=== PATIENT | female | born 1945 | race African-American/Black ===

== ENCOUNTER 2017-06-10 00:24 | Observation (INO) | payer MEDICARE ==
--- NOTE | 2017-06-10 00:44 | ED Physician Documentation ---
PD HPI ABD PAIN - Stated complaint Stated Complaint: ABDOMINAL PAIN - Chief complaint Chief Complaint: Abd Pain - History obtained from History obtained from: Patient - History of Present Illness Timing - onset: Yesterday (yesterday morning (less than 24 hours)) Timing - details: Gradual onset, Waxing and waning Pain level now: 7 Quality: Pain Location: All over / everywhere Radiation: Other (no radiation) Improved by: Other (no ameliorating factors) Worsened by: Other (no exacerbating factors) Associated symptoms: Nausea, Vomiting. No: Fever, Diarrhea, Constipation Similar symptoms before: Has not had sx before Recently seen: Not recently seen Review of Systems Constitutional: reports: Reviewed and negative Eyes: reports: Reviewed and negative Ears: reports: Reviewed and negative Nose: reports: Reviewed and negative Throat: reports: Reviewed and negative Cardiac: reports: Reviewed and negative Respiratory: reports: Reviewed and negative GI: reports: Abdominal Pain, Nausea, Vomiting. denies: Abdominal Swelling, Constipation, Diarrhea, Bloody / black stool : denies: Dysuria, Frequency Skin: reports: Reviewed and negative Musculoskeletal: reports: Reviewed and negative Neurologic: reports: Reviewed and negative PD PAST MEDICAL HISTORY - Past Medical History Past Medical History: Yes Cardiovascular: Hypertension, High cholesterol GI: GERD, Ulcers Musculoskeletal: Chronic back pain - Past Surgical History Past Surgical History: Yes General: Cholecystectomy Ortho: Carpal Tunnel surgery, Spine surgery, Other /MACHINIST HELPER: Hysterectomy, Oophrectomy - Present Medications Home Medications: Ambulatory Orders Medication Instructions Recorded Confirmed Aspirin 81 mg PO DAILY 06/10/17 06/10/17 Hydralazine HCl 50 mg PO BID 06/10/17 06/10/17 Metoprolol Succinate 12.5 mg PO BID 06/10/17 06/10/17 Pravastatin [Pravachol] 40 mg PO DAILY 06/10/17 06/10/17 amLODIPine [Norvasc] 5 mg PO BID 06/10/17 06/10/17 - Allergies Allergies/Adverse Reactions: Allergies Allergy/AdvReac Type Severity Reaction Status Date / Time lisinopril AdvReac Edema Verified 06/10/17 05:43 - Social History Does the pt smoke?: Yes Smoking Status: Current every day smoker Does the pt drink ETOH?: No Does the pt have substance abuse?: No - Immunizations Immunizations are current?: No Immunizations: TDAP >10years/unknown - POLST Patient has POLST: No PD ED PE NORMAL - Vitals Vital signs reviewed: Yes - General General: Alert and oriented X 3, Well developed/nourished, Other (obvious painful distress; when I first enter room, she is standing at bedside, leaning forward and clutching her abdomen) - HEENT HEENT: Other (tacky/pasty mucous membranes) - Cardiac Cardiac: RRR, No murmur - Respiratory Respiratory: No respiratory distress, Clear bilaterally - Abdomen Abdomen: Soft, Non distended, Other (mild/moderate tenderness across lower abdomen without rebound or guarding, more pronounced in LLQ) - Back Back: No CVA TTP - Derm Derm: Normal color, Warm and dry - Extremities Extremities: No edema Results - Vitals Vitals: Vital Signs - 24 hr 06/10/17 06/10/17 06/10/17 00:31 01:20 01:52 Temperature 36.9 C Heart Rate 103 H 107 H Respiratory 17 19 16 Rate Blood Pressure 170/92 H 166/82 H O2 Saturation 96 98 06/10/17 06/10/17 02:06 02:39 Temperature Heart Rate 100 101 H Respiratory 17 16 Rate Blood Pressure 160/79 H 154/89 H O2 Saturation 98 99 Oxygen O2 Source Room air - Labs Labs: Laboratory Tests 06/10/17 06/10/17 06/10/17 01:10 01:10 02:39 WBC 14.9 H RBC 5.47 H Hgb 14.4 Hct 46.5 MCV 84.9 MCH 26.4 L MCHC 31.1 L RDW 15.4 H Plt Count 316 MPV 8.4 Neut # 12.9 H Lymph # 1.4 L Ponce # 0.5 Eos # 0.0 Baso # 0.0 Absolute Nucleated RBC 0.00 Nucleated RBC % 0.0 Sodium 138 Potassium 3.5 Chloride 101 Carbon Dioxide 26 Anion Gap 11.0 BUN 15 Creatinine 0.8 Estimated GFR (MDRD) 85 L Glucose 184 H Calcium 9.4 Total Bilirubin 0.4 AST 19 ALT 14 Alkaline Phosphatase 115 Total Protein 7.6 Albumin 4.2 Globulin 3.4 Albumin/Globulin Ratio 1.2 Lipase 19 L Urine Color YELLOW Urine Clarity CLEAR Urine pH 7.0 Ur Specific [place] <=1.005 Urine Protein NEGATIVE Urine Glucose (UA) NEGATIVE Urine Ketones TRACE Urine Occult Blood TRACE-INTA Urine Nitrite NEGATIVE Urine Bilirubin NEGATIVE Urine Urobilinogen 0.2 (NORMAL) Ur Leukocyte Esterase NEGATIVE Ur Microscopic Review NOT INDICATED Urine Culture Comments NOT INDICATED - Rads (name of study) CT A/P Radiology: Prelim report reviewed, See rad report PD MEDICAL DECISION MAKING - ED course Complexity details: reviewed results, re-evaluated patient, considered differential, d/w patient ED course: patient had modest and transient improvement in pain with 4mg IV morphine, but upon returning from CT, she says the pain has returned and feels about the same as when she first came in. She also continues to have nausea after IV fluids and zofran. CT suggests early/partial SBO. Given another dose of morphine and IV fluids continued and admitted for observation Departure - Departure Disposition: ED Place in Observation Clinical Impression: Partial small bowel obstruction Condition: Good Discharge Date/Time: 06/10/17 03:40
[2017-06-10] MEDS ORDERED: MORPHINE 2 MG/ML SYRINGE IVP STA ×2 (00:56→02:55)
[2017-06-10] MEDS ORDERED: SODIUM CHLORIDE 0.9% 500 ML IV STA (00:56)
[2017-06-10] MEDS ORDERED: ONDANSETRON 4 MG/2 ML VIAL IVP STA (01:32)
[2017-06-10 01:42] LABS: BASOPHILS % (AUTO) 0.2 %; HGB - HEMOGLOBIN 14.4 g/dL (12.0-16.0); LYMPHOCYTES # (AUTO) 1.4 10^3/uL (1.5-3.5); LYMPHOCYTES % (AUTO) 9.5 %; MEAN CORPUSCULAR HEMOGLOBIN 26.4 pg (27.0-31.0); MEAN CORPUSCULAR HGB CONC 31.1 g/dL (32.0-36.0); MEAN CORPUSCULAR VOLUME 84.9 fL (81.0-99.0); MEAN PLATELET VOLUME 8.4 fL (7.9-10.8); MONOCYTES # (AUTO) 0.5 10^3/uL (0.0-1.0); MONOCYTES % (AUTO) 3.4 %; NEUTROPHILS # (AUTO) 12.9 10^3/uL (1.5-6.6); NEUTROPHILS % (AUTO) 86.9 %; PLT - PLATELET COUNT 316 10^3/uL (130-450); RED BLOOD COUNT 5.47 10^6/uL (4.20-5.40); RED CELL DISTRIBUTION WIDTH 15.4 % (12.0-15.0); WHITE BLOOD COUNT 14.9 x10^3/uL (4.8-10.8)
[2017-06-10 01:43] LABS: ALBUMIN 4.2 g/dL (3.2-5.5); ALBUMIN/GLOBULIN RATIO 1.2 (1.0-2.2); BILIRUBIN,TOTAL 0.4 mg/dL (0.2-1.0); CALCIUM 9.4 mg/dL (8.5-10.3); CREATININE 0.8 mg/dL (0.4-1.0); TOTAL PROTEIN 7.6 g/dL (6.7-8.2)
[2017-06-10] MEDS ORDERED: IOPAMIDOL-300 100 ML VIAL ONE (01:56)
[2017-06-10] MEDS ORDERED: IOPAMIDOL-300 100 ML VIAL IVP ONE (02:07)
--- NOTE | 2017-06-10 02:32 | CT Report ---
EXAM: CT ABDOMEN AND PELVIS EXAM DATE: 06/10/2017 02:09 AM. CLINICAL HISTORY: Abdominal pain. COMPARISONS: None. TECHNIQUE: Routine helical CT imaging was performed through the abdomen and pelvis. IV contrast: 100M L ISOVUE 300. Enteric contrast: No. Reconstructions: Coronal and sagittal. In accordance with CT protocol optimization, one or more of the following dose reduction techniques w ere utilized for this exam: automated exposure control, adjustment of mA and/or KV based on patient s ize, or use of iterative reconstructive technique. FINDINGS: Lung Bases: Unremarkable. Liver: Possible fatty infiltration. Gallbladder/Bile Ducts: Status post cholecystectomy. Spleen: Normal. Pancreas: Normal. Adrenal Glands: Normal. Kidneys: Normal. No masses or hydronephrosis. Peritoneal Cavity/Bowel: Small amount of ascites. Prominent fluid-filled small bowel loops with air-f luid levels. Possible transition zone in the left hemipelvis. Findings are suspicious for at least pa rtial small bowel obstruction. Colonic diverticula are seen. Left hemicolon is collapsed and appears mildly thickened. No free air identified. No lymphadenopathy seen. Appendix is not seen. No evidence of appendicitis. Pelvic Organs: Uterus is not seen. Visualized pelvic organs are otherwise unremarkable. Vasculature: Mild to moderate atherosclerosis. No aortic aneurysm. Bones: Degenerative changes in the spine. Mild grade 1 degenerative spondylolisthesis at L3-L4 and L4 -L5. Degenerative joint disease in the hips. Other: None. IMPRESSION: 1. Prominent fluid-filled small bowel loops with air-fluid levels and decompressed distal loops. Poss ible transition in the left hemipelvis. Findings probably represent at least partial small bowel obst ruction. 2. Colonic diverticula. Left hemicolon is collapsed and appears mildly thickened. This probably is si mply due to nondistention. Mild colitis also possible. Diverticulitis less likely. 3. Small amount of ascites. No free air. [facility] Referring Provider Line: [phone] SITE ID: [id number]
[2017-06-10 02:43] LABS: BILIRUBIN,URINE NEGATIVE (NEGATIVE); GLUCOSE, URINE (UA) NEGATIVE (NEGATIVE); KETONES,URINE (UA) TRACE mg/dL (NEGATIVE); LEUKOCYTE ESTERASE, URINE NEGATIVE (NEGATIVE); NITRITE,URINE NEGATIVE (NEGATIVE); OCCULT BLOOD,URINE TRACE-INTA (NEGATIVE); PROTEIN,URINE NEGATIVE (NEGATIVE); UROBILINOGEN,URINE 0.2 (NORMAL) E.U./dL (NORMAL)
[2017-06-10 02:44] LABS: CLARITY,URINE CLEAR (CLEAR)
[2017-06-10] MEDS ORDERED: SODIUM CHLORIDE FLUSH 0.9% 10 ML SYRINGE IVP PRN (03:03)
[2017-06-10] MEDS ORDERED: METOPROLOL 5 MG/5 ML VIAL IVP PRN (03:08)
[2017-06-10] MEDS ORDERED: ONDANSETRON 4 MG/2 ML VIAL IVP PRN (03:09)
[2017-06-10] MEDS: SODIUM CHLORIDE 0.9% 1,000 ML IV SCH ×2 (04:30→16:04)
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
[2017-06-10] MEDS: POLYETHYLENE GLYCOL 3350 17 GM PACKET PO SCH (07:28)
[2017-06-10] MEDS: MORPHINE 2 MG/ML SYRINGE IVP PRN ×3 (08:31→15:49)
[2017-06-10 09:08] LABS: BASOPHILS % (AUTO) 0.3 %; EOSINOPHILS % (AUTO) 0.1 %; HGB - HEMOGLOBIN 13.4 g/dL (12.0-16.0); LYMPHOCYTES % (AUTO) 8.9 %; MEAN CORPUSCULAR HEMOGLOBIN 27.7 pg (27.0-31.0); MEAN CORPUSCULAR VOLUME 83.9 fL (81.0-99.0); MEAN PLATELET VOLUME 7.7 fL (7.9-10.8); MONOCYTES # (AUTO) 0.8 10^3/uL (0.0-1.0); MONOCYTES % (AUTO) 6.9 %; NEUTROPHILS # (AUTO) 9.7 10^3/uL (1.5-6.6); NEUTROPHILS % (AUTO) 83.8 %; PLT - PLATELET COUNT 274 10^3/uL (130-450); RED BLOOD COUNT 4.86 10^6/uL (4.20-5.40); RED CELL DISTRIBUTION WIDTH 15.4 % (12.0-15.0); WHITE BLOOD COUNT 11.6 x10^3/uL (4.8-10.8)
[2017-06-10 09:21] LABS: ALBUMIN 3.5 g/dL (3.2-5.5); ALBUMIN/GLOBULIN RATIO 1.3 (1.0-2.2); BILIRUBIN,TOTAL 0.7 mg/dL (0.2-1.0); CALCIUM 8.4 mg/dL (8.5-10.3); CREATININE 0.7 mg/dL (0.4-1.0); TOTAL PROTEIN 6.2 g/dL (6.7-8.2)
[2017-06-10] MEDS: hydrALAZINE INJ 20 MG/ML VIAL IVP SCH ×2 (09:53→21:00)
[2017-06-10] MEDS: SODIUM CHLORIDE FLUSH 0.9% 10 ML SYRINGE IVP SCH ×2 (09:54→15:57)
--- NOTE | 2017-06-10 16:04 | PROVIDER PROGRESS NOTE ---
Assessment/Plan - Problem List (1) Partial small bowel obstruction Assessment/Plan: Imaging that was completed in the ED show prominent fluid-filled small bowel loops with air-fluid levels and decompressed distal loops. Findings suggest at least a partial SBO. There were several attempts made to insert an NG for decompression. She has not had emesis since the time of admission. Plan: NPO, leave NG tube out, IV fluids, anti-emetics, and pain meds using morphine IV. (2) Abdominal pain Assessment/Plan: A few days prior to this admission, the patient admits to constipation, followed by abdominal pain. On the day of admission this changed to diarrhea, nausea and vomiting. She continues to have abdominal pain and it is located near her navel when asked. She states that it is sharp and cramp like. Plan: Continue IV morphine and complete upper GI series. (3) Nausea & vomiting Assessment/Plan: The patient had continual nausea and vomiting up until the time of admission. The vomiting has subsided and she did not have to get the NG tube. She remains with mild nausea which is being treated with zofran PRN. Plan: Continue to monitor. (4) Essential hypertension Assessment/Plan: The patient has a known history of this and was noted to be in the 170's/90's upon admission. Today blood pressures are improved at 129/63. Plan: Continue to monitor vital signs an give usual home dose of beta diana since the vomiting has subsided. - Current Meds Current Meds: Current Medications Generic Name Dose Route Start Last Admin Trade Name Freq PRN Reason Stop Dose Admin Hydralazine HCl 10 mg 06/10/17 09:00 06/10/17 09:53 Apresoline Inj IVP Not Given BID SETH Sodium Chloride 1,000 mls @ 100 mls/hr 06/10/17 04:00 06/10/17 04:30 Normal Saline 0.9% IV 100 mls/hr .Q10H SETH Administration Morphine Sulfate 2 mg 06/10/17 03:09 06/10/17 15:49 Morphine IVP 2 mg Q2H PRN Administration PAIN Polyethylene Glycol 17 gm 06/10/17 09:00 06/10/17 07:28 Miralax PO Not Given DAILY SETH Sodium Chloride 10 ml 06/10/17 03:03 06/10/17 08:31 Normal Saline Flush 0.9% IVP 10 ml PRN PRN Administration NEEDED PER PROVIDER ORDERS Sodium Chloride 10 ml 06/10/17 09:00 06/10/17 15:57 Normal Saline Flush 0.9% IVP 10 ml [id number],[id number],1700 SETH Administration - Lab Result Lab results reviewed: Yes Fish Bone Diagrams: 06/11/17 15:03 06/11/17 15:03 - EKG Results EKG Interpreted Independently: Yes EKG Comparison: Unchanged from prior EKG - Diagnostic Imaging Results Diagnostic Imaging Results: Prelim report reviewed, Final report reviewed - Additional Planning Condition/Complexity: Stable Plan Discussed with:: Patient, Family Time Spent: 15-30 minutes Subjective - Subjective Patient Reports: Abdominal Pain, Nausea Nursing Reports: Nausea Objective Vital Signs: Vital Signs - 24 hr 06/10/17 06/10/17 06/10/17 03:05 03:40 04:24 Temperature 37.3 C 37.3 C Heart Rate 101 H Heart Rate [ 99 Radial] Respiratory 16 18 Rate Blood Pressure 150/85 H Blood Pressure 133/67 H [Left Radial artery] O2 Saturation 98 95 06/10/17 06/10/17 07:53 09:53 Temperature 37.2 C Heart Rate Heart Rate [ 95 Radial] Respiratory 17 Rate Blood Pressure 135/71 H Blood Pressure 135/71 H [Left Radial artery] O2 Saturation 98 Oxygen O2 Source Room air General: Alert, Oriented x3, Cooperative, Mild distress HEENT: Atraumatic Neck: Supple, No JVD Lymphatic: no adenopathy Neuro: Alert, CN 2-12 Grossly Intact, Oriented Times 3 Cardiovascular: Regular rate, Normal S1, Normal S2, No murmurs Respiratory: Chest non-tender, No respiratory distress, Breath sounds nml Abdomen: Soft, No masses, Other (tenderness all 4 quadrants, hypoactive.) Extremities: No clubbing, No cyanosis, No edema Skin: No rashes, No breakdown, No significant lesion - Results Results: Laboratory Results WBC 11.6 x10^3/uL (4.8-10.8) H 06/10/17 09:01 RBC 4.86 10^6/uL (4.20-5.40) 06/10/17 09:01 Hgb 13.4 g/dL (12.0-16.0) 06/10/17 09:01 Hct 40.7 % (37.0-47.0) 06/10/17 09:01 MCV 83.9 fL (81.0-99.0) 06/10/17 09:01 MCH 27.7 pg (27.0-31.0) 06/10/17 09:01 MCHC 33.0 g/dL (32.0-36.0) 06/10/17 09:01 RDW 15.4 % (12.0-15.0) H 06/10/17 09:01 Plt Count 274 10^3/uL (130-450) 06/10/17 09:01 MPV 7.7 fL (7.9-10.8) L 06/10/17 09: Neut # 9.7 10^3/uL (1.5-6.6) H 06/10/17 09:01 Lymph # 1.0 10^3/uL (1.5-3.5) L 06/10/17 09:01 [place] # 0.8 10^3/uL (0.0-1.0) 06/10/17 09:01 Eos # 0.0 10^3/uL (0.0-0.7) 06/10/17 09:01 Baso # 0.0 10^3/uL (0.0-0.1) 06/10/17 09:01 Absolute Nucleated RBC 0.00 x10^3/uL 06/10/17 09:01 Nucleated RBC % 0.0 /100WBC 06/10/17 09:01 Sodium 139 mmol/L (135-145) 06/10/17 09:01 Potassium 3.3 mmol/L (3.5-5.0) L 06/10/17 09:01 Chloride 105 mmol/L (101-111) 06/10/17 09:01 Carbon Dioxide 27 mmol/L (21-32) 06/10/17 09:01 Anion Gap 7.0 (6-13) 06/10/17 09:01 BUN 13 mg/dL (6-20) 06/10/17 09:01 Creatinine 0.7 mg/dL (0.4-1.0) 06/10/17 09:01 Estimated GFR (MDRD) 99 (>89) 06/10/17 09:01 Glucose 121 mg/dL (70-100) H 04/24/18 09:01 POC Whole Bld Glucose 110 mg/dL (70 - 100) H 06/10/17 11:56 Calcium 8.4 mg/dL (8.5-10.3) L 06/10/17 09:01 Total Bilirubin 0.7 mg/dL (0.2-1.0) 06/10/17 09:01 AST 16 IU/L (10-42) 06/10/17 09:01 ALT 11 IU/L (10-60) 06/10/17 09:01 Alkaline Phosphatase 84 IU/L (42-121) 06/10/17 09:01 Total Protein 6.2 g/dL (6.7-8.2) L 06/10/17 09:01 Albumin 3.5 g/dL (3.2-5.5) 06/10/17 09:01 Globulin 2.7 g/dL (2.1-4.2) 06/10/17 09:01 Albumin/Globulin Ratio 1.3 (1.0-2.2) 06/10/17 09:01 Lipase 19 U/L (22-51) L 06/10/17 01:10 Urine Color YELLOW 06/10/17 02:39 Urine Clarity CLEAR (CLEAR) 06/10/17 02:39 Urine pH 7.0 PH (5.0-7.5) 06/10/17 02:39 Ur Specific [place] <=1.005 (1.002-1.030) 06/10/17 02:39 Urine Protein NEGATIVE mg/dL (NEGATIVE) 06/10/17 02:39 Urine Glucose (UA) NEGATIVE mg/dL (NEGATIVE) 06/10/17 02:39 Urine Ketones TRACE mg/dL (NEGATIVE) 06/10/17 02:39 Urine Occult Blood TRACE-INTA (NEGATIVE) 06/10/17 02:39 Urine Nitrite NEGATIVE (NEGATIVE) 06/10/17 02:39 Urine Bilirubin NEGATIVE (NEGATIVE) 06/10/17 02:39 Urine Urobilinogen 0.2 (NORMAL) E.U./dL (NORMAL) 06/10/17 02:39 Ur Leukocyte Esterase NEGATIVE (NEGATIVE) 06/10/17 02:39 Ur Microscopic Review NOT INDICATED 06/10/17 02:39 Urine Culture Comments NOT INDICATED 06/10/17 02:39
[2017-06-10] MEDS: D5.45NS W/20 MEQ KCL 1,000 ML IV SCH (23:44)
[2017-06-11] MEDS: SODIUM CHLORIDE FLUSH 0.9% 10 ML SYRINGE IVP SCH ×3 (03:54→15:47)
[2017-06-11] MEDS: hydrALAZINE INJ 20 MG/ML VIAL IVP SCH (07:50)
[2017-06-11] MEDS: POLYETHYLENE GLYCOL 3350 17 GM PACKET PO SCH (08:11)
[2017-06-11] MEDS: D5.45NS W/20 MEQ KCL 1,000 ML IV SCH (09:51)
--- NOTE | 2017-06-11 12:52 | XRAY Report ---
SMALL BOWEL FOLLOWTHROUGH: 06/10/2017 INDICATION: Partial bowel obstruction on CT. COMPARISON: CT 06/10/2017. FINDINGS: Initial director of scout work view of the abdomen demonstrates residual contrast in the urinary bladder from CT. Dilation of mid small bowel loop is again noted. The patient ingested barium. The jejunum demonstrates a normal fold pattern. The dilated segments of small bowel in the mid abdomen persist. Oral contrast does pass through these dilated loops, the decompressed distal small bowel loops, and reaches the ascending colon at 4 hours. IMPRESSION: PERSISTENT PARTIAL SMALL BOWEL OBSTRUCTION, WITH ORAL CONTRAST REACHING THE COLON AT 4 HOURS. TD: 06/11/2017 12:51
[2017-06-11] MEDS ORDERED: SENNA 8.6 MG TABLET PO SCH (14:45)
[2017-06-11] MEDS ORDERED: METHYLNALTREXONE 12 MG/0.6 ML VIAL SUBQ SCH (15:00)
[2017-06-11 15:07] LABS: BASOPHILS % (AUTO) 0.3 %; EOSINOPHILS # (AUTO) 0.1 10^3/uL (0.0-0.7); EOSINOPHILS % (AUTO) 0.9 %; HGB - HEMOGLOBIN 11.6 g/dL (12.0-16.0); LYMPHOCYTES # (AUTO) 1.9 10^3/uL (1.5-3.5); LYMPHOCYTES % (AUTO) 21.9 %; MEAN CORPUSCULAR HEMOGLOBIN 27.5 pg (27.0-31.0); MEAN CORPUSCULAR HGB CONC 32.2 g/dL (32.0-36.0); MEAN CORPUSCULAR VOLUME 85.2 fL (81.0-99.0); MEAN PLATELET VOLUME 7.3 fL (7.9-10.8); MONOCYTES # (AUTO) 0.5 10^3/uL (0.0-1.0); MONOCYTES % (AUTO) 5.9 %; NEUTROPHILS # (AUTO) 6.3 10^3/uL (1.5-6.6); PLT - PLATELET COUNT 221 10^3/uL (130-450); RED BLOOD COUNT 4.23 10^6/uL (4.20-5.40); WHITE BLOOD COUNT 8.9 x10^3/uL (4.8-10.8)
[2017-06-11 15:20] LABS: ALBUMIN 3.1 g/dL (3.2-5.5); ALBUMIN/GLOBULIN RATIO 1.2 (1.0-2.2); BILIRUBIN,TOTAL 0.4 mg/dL (0.2-1.0); CALCIUM 8.1 mg/dL (8.5-10.3); CREATININE 0.8 mg/dL (0.4-1.0); TOTAL PROTEIN 5.7 g/dL (6.7-8.2)
--- NOTE | 2017-06-11 16:41 | XRAY Report ---
SUPINE AND UPRIGHT VIEWS OF THE ABDOMEN: 06/11/2017 CLINICAL INDICATION: Partial small-bowel obstruction. FINDINGS: Supine and upright views of the abdomen demonstrate oral contrast throughout the colon. Previously seen small bowel dilatation has resolved. No free intraperitoneal gas is present. IMPRESSION: RESOLUTION OF PREVIOUSLY SEEN DILATATION OF THE MID SMALL BOWEL LOOPS. ORAL CONTRAST THROUGHOUT THE COLON. TD: 06/11/2017 16:40
--- NOTE | 2017-06-11 17:14 | Discharge Plan ---
Discharge Plan Disposition: 01 Home, Self Care Condition: Good Diet: Soft (avoid raw vegtables and nuts for the next 6 months.) Activity Restrictions: No Restrictions Shower Restrictions: No Driving Restrictions: No Weight Bearing: Full Weight Additional Instructions or Follow Up instructions: You were admitted due to ongoing abdominal pain with diarrhea. You were found to have a partial small bowel obstruction which resolved with bowel rest, medications, and IV fluids. This may have been originally caused by a virus. Please eat well cooked, soft foods and avoid raw veggies, or nuts for at least the next 6 months. Drugs associated with constipation Analgesics Anticholinergics Antihistamines Antispasmodics Antidepressants Antipsychotics Cation-containing agents Iron supplements Aluminum (antacids, sucralfate) Barium Neurally active agents Opiates Antihypertensives Ganglionic blockers Vinca alkaloids Calcium channel blockers 5HT3 antagonists Please see your PCP within one week. When it is time for you to fly back home, walk around the airplane every one hour. You can have TUMS, tylenol, or Mylanta as we talked about. Resume all other medications. No Smoking: If you smoke, Please STOP! Call for help. Follow-up with: Provider,Other [Primary Care Provider] -
--- NOTE | 2017-06-11 17:45 | DISCHARGE SUMMARY ---
Discharge Summary Discharge Date: 06/11/17 Discharging Provider: PIO Mcgill Code Status: Attempt Resuscitation Condition at Discharge: Good Discharge Disposition: 01 Home, Self Care - DIAGNOSES Admission Diagnoses: Essential (primary) hypertension (I10) Nausea with vomiting, unspecified (R11.2) Unspecified abdominal pain (R10.9) Partial intestinal obstruction, unspecified as to cause (K56.600) Discharge Diagnoses with Status of Each Condition: Unspecified abdominal pain (R10.9) Essential (primary) hypertension (I10) Partial intestinal obstruction, unspecified as to cause (K56.600) Nausea with vomiting, unspecified (R11.2) - HPI History of Present Illness: Rosamaria Atwood is an 72-year old female with a past medical history of hypertension, hyperlipidemia, osteoarthritis, status post total abdominal hysterectomy, lap rahel, 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 She is visiting from the [facility] as her son is retired from the [employer]. She is normally in good health, but over the last 2 days she has been increasingly constipated and took several laxatives. This morning just after consuming a [employer] breakfast bowl she had severe abdominal cramping and pain. Later in the day her symptoms were unchanged, but now had diarrhea, and vomiting that lasted for several hours until the time she presented to the ED. Once in the ED she was found to be mildly hypertensive likely as a result of the inability to take her usual medications, an elevated WBC count of 14.9, although was on a tapering prednisone dose. An abdominal CT scan showed a probable partial SBO, fluid- filled, small bowel loops with air fluid levels and decompressed distal loops. The patient will be admitted to our observation unit for further work up of these CT findings and for symptom management. General surgery will be consulted if needed. - HOSPITAL COURSE Hospital Course: The following diagnoses were prevalent during this hospital stay: (1) Partial small bowel obstruction- Imaging that was completed in the ED show prominent fluid-filled small bowel loops with air-fluid levels and decompressed distal loops. Findings suggest at least a partial SBO. There were several attempts made to insert an NG for decompression. She has not had emesis since the time of admission. A GI upper series was completed which still showed mild blockage, so a follow up KUB was completed which showed complete resolution of the SBO. The patient's pain improved and she was tolerating a regular diet at the time of discharge. (2) Abdominal pain- A few days prior to this admission, the patient admits to constipation, followed by abdominal pain. On the day of admission this changed to diarrhea, nausea and vomiting. She continues to have abdominal pain and it is located near her navel when asked. She states that it is sharp and cramp like. The patient was given continuous IV fluids until she could tolerate PO intake. She was given IV morphine that was not continued upon discharge. She underwent a complete upper GI series, and a follow up abdominal x-ray which showed resolution of the SBO. (3) Nausea & vomiting- The patient had continual nausea and vomiting up until the time of admission. The vomiting has subsided and she did not have to get the NG tube. She remains with mild nausea which is being treated with zofran PRN. This is considered resolved at the time of discharge. (4) Essential hypertension- The patient has a known history of this and was noted to be in the 170's/90's upon admission. Today blood pressures are improved at 129/63. The patient was continuously monitored, and was given her usual home dose of beta diana after the vomiting subsided. Disposition: The patient was in stable condition at the time of discharge. She was given teaching material on SBO. Her son and [id number] were present. She was ambulatory and did not require oxygen. She refused oral pain medications. She was in agreement with the discharge and seemed to understand the new food restrictions, including to stick with fully cooked veggies. - ALLERGIES Allergies/Adverse Reactions: Allergies Allergy/AdvReac Type Severity Reaction Status Date / Time lisinopril AdvReac Edema Verified 06/10/17 05:43 - MEDICATIONS Home Medications: Ambulatory Orders Medication Instructions Recorded Confirmed Aspirin 81 mg PO DAILY 06/10/17 06/10/17 Hydralazine HCl 50 mg PO BID 06/10/17 06/10/17 Metoprolol Succinate 12.5 mg PO BID 06/10/17 06/10/17 Pravastatin [Pravachol] 40 mg PO DAILY 06/10/17 06/10/17 amLODIPine [Norvasc] 5 mg PO BID 06/10/17 06/10/17 - PHYSICAL EXAM AT DISCHARGE General Appearance: positive: No acute distress, Alert Eyes Bilateral: positive: Normal inspection, PERRL ENT: positive: ENT inspection nml, Pharynx nml, No signs of dehydration Neck: positive: Nml inspection, Thyroid nml, No JVD, Trachea midline Cardiovascular: positive: Regular rate & rhythm, No murmur, No gallop Peripheral Pulses: positive: 2+ Abdomen: positive: Tenderness, Guarding, Abnml bowel sounds, Other (soft.) Back: positive: Nml inspection Skin: positive: No rash, Warm, Dry Extremities: positive: Non-tender, Full ROM, No pedal edema Neurologic/Psychiatric: positive: Oriented x3, CN's nml (2-12), Motor nml, Sensation nml, Mood/affect nml Reflexes: Bicep (R): 3+, Bicep (L): 3+ - LABS Result Diagrams: 06/11/17 15:03 06/11/17 15:03 - DIAGNOSTIC IMAGING Diagnostic Imaging Results: Final report reviewed Diagnostic Imaging Results Comments: EXAM: CT ABDOMEN AND PELVIS EXAM DATE: 06/10/2017 02:09 AM. CLINICAL HISTORY: Abdominal pain. COMPARISONS: None. TECHNIQUE: Routine helical CT imaging was performed through the abdomen and pelvis. IV contrast: 100ML ISOVUE 300. Enteric contrast: No. Reconstructions: Coronal and sagittal. In accordance with CT protocol optimization, one or more of the following dose reduction techniques were utilized for this exam: automated exposure control, adjustment of mA and/or KV based on patient size, or use of iterative reconstructive technique. FINDINGS: Lung Bases: Unremarkable. Liver: Possible fatty infiltration. Gallbladder/Bile Ducts: Status post cholecystectomy. Spleen: Normal. Pancreas: Normal. Adrenal Glands: Normal. Kidneys: Normal. No masses or hydronephrosis. Peritoneal Cavity/Bowel: Small amount of ascites. Prominent fluid-filled small bowel loops with air-fluid levels. Possible transition zone in the left hemipelvis. Findings are suspicious for at least partial small bowel obstruction. Colonic diverticula are seen. Left hemicolon is collapsed and appears mildly thickened. No free air identified. No lymphadenopathy seen. Appendix is not seen. No evidence of appendicitis. Pelvic Organs: Uterus is not seen. Visualized pelvic organs are otherwise unremarkable. Vasculature: Mild to moderate atherosclerosis. No aortic aneurysm. Bones: Degenerative changes in the spine. Mild grade 1 degenerative spondylolisthesis at L3-L4 and L4-L5. Degenerative joint disease in the hips. Other: None. IMPRESSION: 1. Prominent fluid-filled small bowel loops with air-fluid levels and decompressed distal loops. Possible transition in the left hemipelvis. Findings probably represent at least partial small bowel obstruction. 2. Colonic diverticula. Left hemicolon is collapsed and appears mildly thickened. This probably is simply due to nondistention. Mild colitis also possible. Diverticulitis less likely. 3. Small amount of ascites. No free air. EXAM: [id number] FL/UGISBWO ([id number]) SMALL BOWEL FOLLOWTHROUGH: 06/10/2017 INDICATION: Partial bowel obstruction on CT. COMPARISON: CT 06/10/2017. FINDINGS: Initial netbackup admin view of the abdomen demonstrates residual contrast in the urinary bladder from CT. Dilation of mid small bowel loop is again noted. The patient ingested barium. The jejunum demonstrates a normal fold pattern. The dilated segments of small bowel in the mid abdomen persist. Oral contrast does pass through these dilated loops, the decompressed distal small bowel loops , and reaches the ascending colon at 4 hours. IMPRESSION: PERSISTENT PARTIAL SMALL BOWEL OBSTRUCTION, WITH ORAL CONTRAST REACHING THE COLON AT 4 HOURS. EXAM: [id number] XR/[id number] SUPINE AND UPRIGHT VIEWS OF THE ABDOMEN: 06/11/2017 CLINICAL INDICATION: Partial small-bowel obstruction. FINDINGS: Supine and upright views of the abdomen demonstrate oral contrast throughout the colon. Previously seen small bowel dilatation has resolved. No free intraperitoneal gas is present. IMPRESSION: RESOLUTION OF PREVIOUSLY SEEN DILATATION OF THE MID SMALL BOWEL LOOPS. ORAL CONTRAST THROUGHOUT THE COLON. - FOLLOW UP Follow Up: Disposition: 01 Home, Self Care Condition: Good Diet: Soft (avoid raw vegtables and nuts for the next 6 months.) Activity Restrictions: No Restrictions Shower Restrictions: No Driving Restrictions: No Weight Bearing: Full Weight Additional Instructions or Follow Up instructions: You were admitted due to ongoing abdominal pain with diarrhea. You were found to have a partial small bowel obstruction which resolved with bowel rest, medications, and IV fluids. This may have been originally caused by a virus. Please eat well cooked, soft foods and avoid raw veggies, or nuts for at least the next 6 months. Drugs associated with constipation Analgesics Anticholinergics Antihistamines Antispasmodics Antidepressants Antipsychotics Cation-containing agents Iron supplements Aluminum (antacids, sucralfate) Barium Neurally active agents Opiates Antihypertensives Ganglionic blockers Vinca alkaloids Calcium channel blockers 5HT3 antagonists Please see your PCP within one week. When it is time for you to fly back home, walk around the airplane every one hour. You can have TUMS, tylenol, or Mylanta as we talked about. Resume all other medications. No Smoking: If you smoke, Please STOP! Call for help. Follow-up with: Provider,Other [Primary Care Provider] - - TIME SPENT Time Spent in Discharge (Minutes): 60
[2017-06-11 18:06] VITALS: BP 144/79
[2017-06-11] MEDS ORDERED: hydrALAZINE 25 MG TABLET PO SCH (21:00)
[2017-06-11] MEDS ORDERED: amLODIPine 5 MG TABLET PO SCH (21:00)
[2017-06-11] MEDS ORDERED: METOPROLOL SUCCINATE 25 MG TABLET PO SCH (21:00)
[2017-06-12] MEDS ORDERED: ASPIRIN CHEW 81 MG TABLET PO SCH (09:00)
[2017-06-12] MEDS ORDERED: PRAVASTATIN 40 MG TABLET PO SCH (09:00)
== END 2017-06-11 18:15 | disposition home or self-care (01) ==
LOC: ED 00:24 → OBS 03:03
PROVIDERS: ADMIT Specialist; ATTEND Nurse Practitioner
DX: K56.51 Intestinal adhesions [bands], with partial obstruction (principal); K59.00 Constipation, unspecified; I10 Essential (primary) hypertension; E78.5 Hyperlipidemia, unspecified; K21.9 Gastro-esophageal reflux disease without esophagitis; K57.30 Diverticulosis of large intestine without perforation or abscess without bleeding; F17.210 Nicotine dependence, cigarettes, uncomplicated; Z87.11 Personal history of peptic ulcer disease; Z79.82 Long term (current) use of aspirin; Z90.49 Acquired absence of other specified parts of digestive tract; Z90.710 Acquired absence of both cervix and uterus; Z88.8 Allergy status to other drugs, medicaments and biological substances
CPT/HCPCS: 36415; 74019; 74177; 74245; 80053; 81003; 82150; 83690; 85025; 96361; 96372; 96374; 96375; 96376; 99284; 99285; A9270; G0378; J2212; J2270; Q9967; 81001; 87086; 87493